=== PATIENT | male | born 1945 | race Caucasian/White ===

== ENCOUNTER 2023-04-18 10:28 | Emergency (ER) | payer OTHER ==
[2023-04-18 11:12] VITALS: BP 171/70; PULSE 58; RESP 17; TEMP 97.9; BMI 29.0
== END 2023-04-18 11:21 | disposition home or self-care (01) ==
LOC: FER 10:28
PROC: 0H9HXZZ Drainage of Right Upper Leg Skin, External Approach (ICD-10-PCS; principal; 2023-04-18)
DX: L02.415 Cutaneous abscess of right lower limb (principal)
CPT/HCPCS: 10060; 87070; 87205; 99284-25

== ENCOUNTER 2023-04-20 10:53 | Emergency (ER) | payer OTHER ==
[2023-04-20 11:05] VITALS: BP 141/79; PULSE 81; RESP 18; TEMP 98.7; BMI 34.4
== END 2023-04-20 11:22 | disposition home or self-care (01) ==
LOC: FER 10:53
DX: L02.415 Cutaneous abscess of right lower limb (principal); Z48.01 Encounter for change or removal of surgical wound dressing; M54.32 Sciatica, left side
CPT/HCPCS: 99283-25